=== PATIENT | male | born 1990 | race Caucasian/White ===

== ENCOUNTER → 2016-12-16 | Outpatient (CLI) | payer OTHER ==
--- NOTE | 2016-12-16 18:38 | MR ---
MRI of the Brain (Without Contrast) Indication: Chronic pain. Technique: Sagittal and axial T1, axial fast inversion-recovery, fast T2-weighted, and diffusion-samm ghted axial images were obtained, without contrast. Comparison: None. Findings: The brain is normally developed. No intracranial hemorrhage, mass, subdural hematoma, or white matter disease. Diffusion-weighted imaging is normal. No ischemia. Diallo and white matter hav e normal signal on the FLAIR and T2-weighted imaging. The ventricular system is normal caliber and m idline. The pituitary gland, orbits, and cervicooccipital junction are unremarkable. Pituitary glan d is normal in size. Paranasal sinuses and mastoid air cells are clear. Impression: Normal brain. No developmental anomaly, mass, or white matter disease.
--- NOTE | 2016-12-16 18:42 | MR ---
MRI Thoracic spine without contrast History: G 89.29, M 54.16, M 54.6, M 79.1, myalgia, thoracic pain, radiculopathy, chronic pain Comparison: MRI of the cervical and lumbar spine. Technique: Sagittal T1/T2/STIR and axial T1/T2-weighted MR series of the thoracic spine without contr ast. Findings: Labeling performed from the cervical through the lumbar spine with congenital fusion of C2- C3. No evidence of thoracic compression fractures or destructive osseous lesions. Thoracic spinal cord de monstrates normal signal intensity without cord edema or myelomalacia. T1-T2: No disk herniation or stenosis. T2-T3: No disk herniation or stenosis. T3-T4: No disk herniation or stenosis. T4-T5: A 5 mm left paramedian disk herniation, protrusion, resulting in mild central canal stenosis w ith slight cord compression and left neural foraminal stenosis. T5-T6: A 5 mm central disk herniation resulting in mild central canal stenosis with slight cord compr ession. T6-T7: No disk herniation or stenosis. T7-T8: No disk herniation or stenosis. T8-T9: No disk herniation or stenosis. T9-T10: No disk herniation or stenosis. T10-T11: No disk herniation or stenosis. T11-T12: No disk herniation or stenosis. T12-L1: No disk herniation or stenosis. No significant facet arthropathy. No destructive osseous lesions. Minimal disk space narrowing from T 2-T3 through T8-T9. Impression: 1. T4-T5: Left paramedian 5 mm disk herniation resulting in mild central canal stenosis and slight co rd compression. 2. T5-T6: Central 5 mm disk herniation resulting in mild central canal stenosis and slight cord compr ession. 3. No thoracic compression fractures. 4. Please see above findings.
--- NOTE | 2016-12-16 18:45 | MR ---
MRI of the Lumbar Spine (Without Contrast) at 1736 hours Clinical Indications: G89.29, chronic pain, M54.16, radiculopathy, M79.1, myalgia. Technique: Sagittal and axial T1 and T2 and sagittal STIR MR sequences of the lumbar spine, without contrast. Findings: Lumbar vertebral bodies are of normal height, without compression fractures. Conus medull guera appears normal and ends at L1-L2. T12-L1: No disk herniation or stenosis. L1-L2: No disk herniation or stenosis. L2-L3: Mild disk bulge, resulting in mild central canal stenosis, without neural foraminal stenosis. L3-L4: Mild disk bulge and mild bilateral facet arthropathy, with fluid in the left facet joint, res ulting in mild central canal stenosis, without neural foraminal stenosis. L4-L5: Mild disk bulge and mild bilateral facet arthropathy, without stenosis. L5-S1: Mild degenerative disk disease and 5-mm central disk herniation, extrusion, migrating caudall y resulting in mild central canal stenosis and abutting the medial aspects of bilateral S1 nerve root s, without neural foraminal stenosis. Mild bilateral facet arthropathy and synovial fluid noted. Impressions 1. L5-S1: Mild central canal stenosis secondary to mild degenerative disk disease, with central sub ligamentous disk herniation, extrusion, and mild bilateral facet arthropathy. 2. Mild central canal stenosis at L2-L3 and L3-L4 secondary to mild disk bulge and mild facet arthro patricio. 3. Please see above findings at specific disk levels.
--- NOTE | 2016-12-16 18:58 | MR ---
MRI Cervical Spine (Without Contrast) Indication: Chronic pain. Technique: Sagittal T1, T2, and axial T2, 3D gradient echo MR sequences of the cervical spine, witho ut contrast. Comparison: None. Findings: The cervical spine is normally aligned. 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 Bone marrow signal is normal. Disk heights are well preserv ed. Minimal disk desiccation is present at C3-C4, C4-C5, C5-C6, and C6-C7. No fracture, bone marrow -replacing lesion, or paraspinal mass. Cerebellar tonsils are in normal position. Cervical spinal cord is normal caliber. No cord edema or myelomalacia. C2-C3: Widely patent central canal. No disk due to congenital fusion. C3-C4: Widely patent central canal and neural foramina. C4-C5: Widely patent central canal and neural foramina. C5-C6: Widely patent central canal and neural foramina. C6-C7: Widely patent central canal. Uncovertebral spurs result in mild bilateral neural foraminal n arrowing. C7-T1: Widely patent central canal and neural foramina. Impression: 1. 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 2. Widely patent central canal. No disk herniation at any level. 3. Mild bilateral neural foraminal narrowing at C6-C7.
== END ==
LOC: FIMAGING 15:44
PROVIDERS: ATTEND Family Medicine
DX: G89.29 Other chronic pain (principal); M54.2 Cervicalgia; M54.16 Radiculopathy, lumbar region; M54.41 Lumbago with sciatica, right side; M51.27 Other intervertebral disc displacement, lumbosacral region; M54.6 Pain in thoracic spine; M51.24 Other intervertebral disc displacement, thoracic region

== ENCOUNTER 2017-02-25 16:11 | Emergency (ER) | payer OTHER ==
--- NOTE | 2017-02-25 16:15 | UCPHY ---
H & P Patient Type: Established HPI/ROS: CHIEF COMPLAINT: Difficulty sleeping. HISTORY OF PRESENT ILLNESS: The patient is a 26-year-old male with a history of anxiety, ADHD, and depression who presents with 4 months of difficulty sleeping. He reports that he is able to fall asleep fine but wakes up at 4am every morning. He goes to bed at 10pm every night. He used to be able to sleep 10p-6a. Though however he stays in bed from 4-6 not getting up. He often will read on his way to bed. He has been taking 1mg Klonopin for the past 3 nights to no effect. He did do a little bit better last night when he took Benadryl 50 mg along with the Klonopin. He has also tried Clonazepam, Amitriptyline, Flexeril, marijuana, Zanaflex and melatonin in the past to no effect. He has not been taking his ADHD medication since October, though does not feel dizzy she has been problematic since then. He denies auditory or visual hallucinations. He had an unexpected, disappointed break-up with his girlfriend back in the 2nd week in September, and has had problems with depression since that time. However he attributes all his symptoms more so to sleeping only 6 hours, epidural 8 hour night sleeper, rather than depression itself. He denies auditory or visual hallucinations. He denies substance abuse. He denies any suicide ideation or homicide ideation. In general feels unwell with sweaty palms and feeling in her tremulousness often REVIEW OF SYSTEMS: 10 point ROS otherwise negative Past Medical/Surgical History: [place], anxiety, depression, ADHD. Social History: Nonsmoker, Grad student at [employer]. Smoking Status: Never smoked Physical Exam: General Appearance: Alert, no distress. Afebrile. Normal phonation. No respiratory distress. Good eye contact. Eyes: Pupils equal and round no pallor or injection. No icterus ENT, Mouth: Mucous membranes moist. Pharynx not erythematous and without exudate. Neck: No adenopathy. Supple. No JVD. Trachea in midline. Respiratory: No respiratory distress Neurological: Ox3. No motor weakness. Sensation intact. Gait nl. Skin: Warm and dry, no rashes. Musculoskeletal: No joint swelling. Psychiatric: Patient is oriented X 3, there is no agitation. He seems to have much more nausea than usual person about medications including 5 dose intervals so ass to achieve a steady state in order to achieve a steady state as well as half lives of the for various benzodiazepines Constitutional: Initial Vital Signs Temperature (C) 36.8 C 02/25/17 16:20 Heart Rate 91 02/25/17 16:20 Respiratory Rate 16 02/25/17 16:20 Blood Pressure 118/91 H 02/25/17 16:20 O2 Sat (%) 97 02/25/17 16:20 O2 Delivery Mode Room Air Allergies/Adverse Reactions: cefixime [From Suprax] Allergy (Verified 02/25/17 16:25) Home Medications: Medication Instructions Recorded CLONAZEPAM 06/27/16 Medical Decision Making ED Course/Re-evaluation: 26-year-old male presents with 3 months of difficulty sleeping, which he describes as being unable to sleep past 4am every morning. He has tried a number of medications to help with this including amitriptyline, clonazepam, Klonopin, Flexeril, and melatonin. He moved to [place] in June and has been establishing care with both a primary care physician and a psychiatrist. When he had his consultation this past summer is at the [facility] there was a recommendation for him to go back on his attention deficit hyperactivity disorder meds which did but not take the SSRI that they recommended. He and his doctor are currently deciding whether or not to place him back on an SSRI, though in talking to him it remains unclear as to why that has not happened. He will be seeing a psychiatrist as well in approximately 10 days time. His primary care physician has run a large battery of blood tests recently including TSH and testosterone but all were normal. Evidently his LFTs were 5 times normal. This has since normalized. He has no other complaints at this time. I do feel is misleading manifestation depression rather than his anxiety. He is over thinking things and is using overintellectualiztion as a crutch though has recently restarted with counseling, fortunately. He has tried virtually everything in think of including Elavil and Flexeril. We further discussed the prospect of using trazodone the risks of a persistent erection was discussed and warned about. Thus he declined. Differential Diagnosis: Diagnostic considerations include, but are not limited to, the following: Depression, anxiety, dysthymic disorder Departure - Departure Disposition: Home, Routine, Self-Care Clinical Impression: Difficulty sleeping Condition: Good Instructions: Insomnia (ED) Additional Instructions: Follow up with your primary care provider on Tuesday as scheduled. Take your Klonopin as prescribed in the past for your anxiety, and 50mg Benadryl as instructed for sleep. Use your bed only for sleeping. Do not read, write, or watch television while in bed. If you are having difficulty falling asleep or staying asleep, get up and sit in a chair for a while before returning to bed. Return for any serious worsening of condition. Referrals: Korey Villareal MD [Primary Care Provider] - As per Instructions - PQRS PQRS Measurement: NA Report Scribed for: Aditya Helms Report Scribed by: Walt Garcia Date of Report: 02/25/17 Time of Report: 16:15
[2017-02-25 16:25] VITALS: BP 118/91; PULSE 91; RESP 16; TEMP 98.2; O2SAT 97
== END 2017-02-25 17:25 | disposition home or self-care (01) ==
LOC: CED 16:11
DX: G47.9 Sleep disorder, unspecified (principal)
CPT/HCPCS: G0463-PO